=== PATIENT | female | born 1990 | race Caucasian/White ===

== ENCOUNTER 2017-08-13 07:11 | Inpatient (IN) | payer MEDICAID ==
[2017-08-13] MEDS ORDERED: Nalbuphine 20 MG/1 ML Amp IVPUSH PRN (07:21)
[2017-08-13] MEDS ORDERED: Ondansetron 4 MG/2 ML SDV IVPUSH PRN (07:21)
[2017-08-13] MEDS ORDERED: Sodium Chloride 0.9% 10 ML Syringe FLUSH PRN (07:21)
[2017-08-13] MEDS ORDERED: Oxytocin/Lactated Ringers 10 UNIT/1,000 ML BAG IV SCH ×2 (07:30)
[2017-08-13] MEDS ORDERED: diphenhydrAMINE 50 MG/ML SDV IVPUSH PRN (07:50)
[2017-08-13] MEDS ORDERED: fentaNYL 100 MCG/2 ML SDV EPIDUR PRN (07:50)
[2017-08-13] MEDS ORDERED: ePHEDrine 50 MG/ML SDV IVPUSH PRN (07:50)
[2017-08-13] MEDS ORDERED: Bupivacaine/fentaNYL/NS 100 ML Bag EPIDUR SCH (08:00)
--- NOTE | 2017-08-13 08:04 | PCM.LDHP ---
L&D History of Present Illness - General Date of Service: 08/13/17 Admit Problem/Dx: Patient Status Order with Admit Dx/Problem 08/13/17 07:22 Patient Status [ADT] Routine Admission Diagnosis/Problem Admission Diagnosis/Problem High risk Source of Information: Patient History Limitations: Reports: No Limitations - History of Present Illness Introduction:: Patient is a 26 y/o at 38 0/7 wks who presents for IOL for IUGR. Patient has had evaluation with MFM this . No underlying etiology found for IUGR. Has had appropriate testing. Did have a low lying placenta throughout . Last week had an US with MFM which showed distance between placenta and cervix of 1.6 cm. Yesterday was 3.8 cm. 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 (Approximate): - Past Surgical History HEENT Surgical History: Reports: Oral Surgery (wisdom tooth extraction) Social & Family History - Family History Family Medical History: Noncontributory - Tobacco Use Smoking Status *Q: Never Smoker Second Hand Smoke Exposure: No - Alcohol Use Alcohol Use History: No Days Per Week of Alcohol Use: 0 - Recreational Drug Use Recreational Drug Use: No H&P Review of Systems - Review of Systems: Review Of Systems: See Below General: Reports: No Symptoms Pulmonary: Reports: No Symptoms Cardiovascular: Reports: No Symptoms Gastrointestinal: Reports: No Symptoms Genitourinary: Reports: No Symptoms Musculoskeletal: Reports: No Symptoms L&D Exam - Exam Exam: See Below - OB Specific Contraction Intensity: Irritability Movement: Active Heart Tones: Present Heart Tones per Min: 135 Heart Rate (FHR) Variability: Moderate (6-25 bmp) Presentation: Vertex - Jeong Score Jeong Score Cervix Position: Posterior Jeong Score Consistency: Soft Jeong Score Effacement: 51-70% Jeong Score Dilation: 1-2 cm Jeong Score 's Station: -3 Jeong Score Total: 5 - Exam General: Alert, Oriented, Cooperative Lungs: Clear to Auscultation, Normal Respiratory Effort Cardiovascular: Regular Rate, Regular Rhythm GI/Abdominal Exam: Soft, Non-Tender Genitourinary: Normal external exam Extremities: Normal Inspection Skin: Warm, Dry, Intact - Patient Data Result Diagrams: 08/13/17 07:50 - Problem List (1) 38 weeks gestation of SNOMED Code(s): 12673895 ICD Code: Z3A.38 - 38 WEEKS GESTATION OF Status: Acute Current Visit: Yes (2) IUGR (intrauterine growth restriction) SNOMED Code(s): 32772989 ICD Code: [id number] - Status: Acute Current Visit: Yes Problem List Initiated/Reviewed/Updated: Yes Orders Last 24hrs: Active Orders 24 hr Category Date Time Status Patient Status [ADT] Routine ADT 08/13/17 07:22 Ordered Activity as Tolerated [RC] PFP Care 08/13/17 07:22 Ordered Communication Order [RC] ASDIRECTED Care 08/13/17 07:22 Ordered Communication Order [RC] ASDIRECTED Care 08/13/17 07:22 Ordered Communication Order [RC] ASDIRECTED Care 08/13/17 07:22 Ordered Communication Order [RC] ASDIRECTED Care 08/13/17 07:50 Active Cooling Warming Measures [RC] ASDIRECTED Care 08/13/17 07:50 Active Monitoring [RC] INTERMITTENT Care 08/13/17 07:22 Ordered Notify Provider [RC] ASDIRECTED Care 08/13/17 07:22 Ordered Notify Provider [RC] ASDIRECTED Care 08/13/17 07:50 Active Notify Provider [RC] PRN Care 08/13/17 07:22 Ordered Oxygen Therapy [RC] ASDIRECTED Care 08/13/17 07:49 Active Peripheral IV Care [RC] . DIRECTED Care 08/13/17 07:22 Ordered Pulse Oximetry [RC] ASDIRECTED Care 08/13/17 07:49 Active Pump Management, Intrathecal [RC] ASDIRECTED Care 08/13/17 07:21 Ordered Up ad Ellie [RC] ASDIRECTED Care 08/13/17 07:22 Ordered Urinary Catheter Assessment [RC] ASDIRECTED Care 08/13/17 07:21 Ordered Vaginal Exam [RC] ASDIRECTED Care 08/13/17 07:22 Ordered Verify Patient Consent Obtain [RC] ASDIRECTED Care 08/13/17 07:50 Active Vital Signs [RC] ASDIRECTED Care 08/13/17 07:22 Ordered Vital Signs [RC] PER UNIT ROUTINE Care 08/13/17 07:22 Ordered Vital Signs [RC] Q1H Care 08/13/17 07:49 Active Regular Diet [DIET] Diet 08/13/17 Breakfast Ordered CBC W/O DIFF,HEMOGRAM [HEME] Routine Lab 08/13/17 07:21 Ordered TYPE AND SCREEN [BBK] Routine Lab 08/13/17 07:21 Ordered Bupivacaine/fentaNYL/NS [fentaNYL/Bupivacaine/NS 2 MCG- Med 08/13/17 08:00 Active 0.125% 100 ML] 100 ml EPIDUR ASDIRECTED Lactated Ringers [Ringers, Lactated] 1,000 ml Med 08/13/17 07:30 Ordered IV ASDIRECTED Nalbuphine [Nubain] Med 08/13/17 07:21 Ordered 10 mg IVPUSH Q2H PRN Ondansetron [Zofran] Med 08/13/17 07:21 Ordered 4 mg IVPUSH Q4H PRN Oxytocin/Lactated Ringers [Pitocin in LR 10 Units/1,000 Med 08/13/17 07:30 Ordered ML] 10 unit in 1,000 ml IV .CONTINUOUS Oxytocin/Lactated Ringers [Pitocin in LR 10 Units/1,000 Med 08/13/17 07:30 Ordered ML] 10 unit in 1,000 ml IV TITRATE Sodium Chloride 0.9% [Saline Flush] Med 08/13/17 07:21 Ordered 10 ml FLUSH ASDIRECTED PRN diphenhydrAMINE [Benadryl] Med 08/13/17 07:50 Active 25 mg IVPUSH Q6H PRN ePHEDrine [ePHEDrine Sulfate] Med 08/13/17 07:50 Active 5 mg IVPUSH ASDIRECTED PRN fentaNYL [Sublimaze] Med 08/13/17 07:50 Active 100 mcg EPIDUR Q3H PRN Electronic Heart Tones Internal [WOMSER] Per Unit Oth 08/13/17 07:22 Ordered Routine Peripheral IV Insertion Adult [OM.PC] Routine Oth 08/13/17 07:22 Ordered Resuscitation Status Routine Resus Stat 08/13/17 07:21 Ordered Medication Orders Diphenhydramine HCl (Benadryl) 25 mg IVPUSH Q6H PRN PRN Reason: Itching Ephedrine Sulfate (Ephedrine Sulfate) 5 mg IVPUSH ASDIRECTED PRN PRN Reason: HYPOTENTSION Fentanyl (Sublimaze) 100 mcg EPIDUR Q3H PRN PRN Reason: PAIN Fentanyl/Bupivacaine HCl (Fentanyl/Bupivacaine/Ns 2 Mcg-0.125% 100 Ml) 100 ml EPIDUR ASDIRECTED KARYNA Lactated Ringer's (Ringers, Lactated) 1,000 mls @ 40 mls/hr IV ASDIRECTED KARYNA Oxytocin/Lactated Ringer's (Pitocin In Lr 10 Units/1,000 Ml) 10 unit in 1,000 mls @ 12 mls/hr IV TITRATE KARYNA; 2 MUNITS/MIN PRN Reason: Protocol Oxytocin/Lactated Ringer's (Pitocin In Lr 10 Units/1,000 Ml) 10 unit in 1,000 mls @ 500 mls/hr IV .CONTINUOUS KARYNA Nalbuphine HCl (Nubain) 10 mg IVPUSH Q2H PRN PRN Reason: Pain (moderate 4-6) Ondansetron HCl (Zofran) 4 mg IVPUSH Q4H PRN PRN Reason: Nausea/Vomiting Sodium Chloride (Saline Flush) 10 ml FLUSH ASDIRECTED PRN PRN Reason: Keep Vein Open Assessment/Plan Comment:: 26 y/o at 38 0/7 wks who presents for IOL for IUGR * CBC and T&S * GBS negative, no need for antibiotics * Pitocin and AROM for augmentation * Pain management per patient preference * Patient previously with low lying placenta, thought to be resolved on yesterday's US. Reviewed still potential for bleeding. She is aware. Does desire trial of vaginal delivery
[2017-08-13] MEDS: Lactated Ringers 1,000 ML IV SCH ×3 (08:29→12:34)
--- NOTE | 2017-08-13 10:57 | PCM.PNLD ---
Labor Progress Note - VS & Meds Vital Signs: Last Vital Signs Temp 37.0 C 08/13/17 07:22 Pulse 92 08/13/17 07:22 Resp 16 08/13/17 07:22 BP 105/54 L 08/13/17 07:22 Pulse Ox 98 08/13/17 09:12 Active Medications: Current Medications Diphenhydramine HCl (Benadryl) 25 mg IVPUSH Q6H PRN PRN Reason: Itching Ephedrine Sulfate (Ephedrine Sulfate) 5 mg IVPUSH ASDIRECTED PRN PRN Reason: HYPOTENTSION Fentanyl (Sublimaze) 100 mcg EPIDUR Q3H PRN PRN Reason: PAIN Fentanyl/Bupivacaine HCl (Fentanyl/Bupivacaine/Ns 2 Mcg-0.125% 100 Ml) 100 ml EPIDUR ASDIRECTED KARYNA Lactated Ringer's (Ringers, Lactated) 1,000 mls @ 40 mls/hr IV ASDIRECTED KARYNA Last Admin: 08/13/17 08:29 Dose: 40 mls/hr Oxytocin/Lactated Ringer's (Pitocin In Lr 10 Units/1,000 Ml) 10 unit in 1,000 mls @ 12 mls/hr IV TITRATE KARYNA; 2 MUNITS/MIN PRN Reason: Protocol Last Titration: 08/13/17 10:07 Dose: 8 munits/min, 48 mls/hr Oxytocin/Lactated Ringer's (Pitocin In Lr 10 Units/1,000 Ml) 10 unit in 1,000 mls @ 500 mls/hr IV .CONTINUOUS KARYNA Nalbuphine HCl (Nubain) 10 mg IVPUSH Q2H PRN PRN Reason: Pain (moderate 4-6) Ondansetron HCl (Zofran) 4 mg IVPUSH Q4H PRN PRN Reason: Nausea/Vomiting Sodium Chloride (Saline Flush) 10 ml FLUSH ASDIRECTED PRN PRN Reason: Keep Vein Open - Uterine Contractions Uterine Monitoring Mode: External [place] Contraction Intensity: Mild to Moderate Uterine Resting Tone: Soft - Monitoring Monitor Mode: External Ultrasound Heart Rate (FHR) Baseline: 135 Heart Rate (FHR) Variability: Moderate (6-25 bmp) Accelerations: Present, 15x15 Decelerations: None Strip Review: Category I - Vaginal Exam Dilation (cm): 3 Effacement (Percent): 60 Station: -2 Cervical Position: Posterior - Labor Progress (Free Text) Labor Progress: Patient doing well. On 8 of pitocin. AROM performed with release of clear fluid
--- NOTE | 2017-08-13 12:28 | PCM.PREANE ---
Preanesthetic Assessment - Anesthesia/Transfusion/Family Hx Anesthesia History: Prior Anesthesia Without Reaction Family History of Anesthesia Reaction: No Transfusion History: No Prior Transfusion(s) - Review of Systems General: No Symptoms Pulmonary: No Symptoms Cardiovascular: No Symptoms Gastrointestinal: No Symptoms Neurological: No Symptoms Other: Reports: None - Physical Assessment Pulse: 68 O2 Sat by Pulse Oximetry: 98 Respiratory Rate: 16 Blood Pressure: 102/63 Temperature: 36.3 C Vital Signs: Last Vital Signs Temp 37.0 C 08/13/17 07:22 Pulse 92 08/13/17 07:22 Resp 16 08/13/17 07:22 BP 105/54 L 08/13/17 07:22 Pulse Ox 98 08/13/17 09:12 Height: 1.6 m Weight: 76.158 kg ASA Class: 2 Mental Status: Alert & Oriented x3 Airway Class: Mallampati = 1 Dentition: Reports: Normal Dentition, Wind Point(s) Thyro-Mental Finger Breadths: 3 Mouth Opening Finger Breadths: 3 ROM/Head Extension: Full Lungs: Clear to Auscultation, Normal Respiratory Effort Cardiovascular: Regular Rate, Regular Rhythm, No Murmurs - Lab Values: Laboratory Last Values WBC 8.65 K/mm3 (3.98-10.04) 08/13/17 07:50 RBC 4.12 M/mm3 (3.98-5.22) 08/13/17 07:50 Hgb 10.8 gm/L (11.2-15.7) L 08/13/17 07:50 Hct 33.0 % (34.1-44.9) L 08/13/17 07:50 MCV 80.1 fl (79.4-94.8) 08/13/17 07:50 MCH 26.2 pg (25.6-32.2) 08/13/17 07:50 MCHC 32.7 g/dl (32.2-35.5) 08/13/17 07:50 RDW Std Deviation 40.9 fL (36.4-46.3) 08/13/17 07:50 Plt Count 194 K/mm3 (182-369) 08/13/17 07:50 MPV 9.8 fl (9.4-12.3) 08/13/17 07:50 Blood Type A POSITIVE 08/13/17 07:50 Gel Antibody Screen Negative 08/13/17 07:50 - Allergies Allergies/Adverse Reactions: Allergies Allergy/AdvReac Type Severity Reaction Status Date / Time No Known Allergies Allergy Verified 01/29/16 08:31 - Acknowledgements Anesthesia Type Planned: Epidural Pt an Appropriate Candidate for the Planned Anesthesia: Yes Alternatives and Risks of Anesthesia Discussed w Pt/Guardian: Yes Pt/Guardian Understands and Agrees with Anesthesia Plan: Yes PreAnesthesia Questionnaire - Past Health History Medical/Surgical History: Denies Medical/Surgical History Gastrointestinal History: Reports: GERD [place] History: Reports: - Past Surgical History HEENT Surgical History: Reports: Oral Surgery (wisdom tooth extraction) - SUBSTANCE USE Smoking Status *Q: Never Smoker Tobacco Use Within Last Twelve Months: No Second Hand Smoke Exposure: No Days Per Week of Alcohol Use: 0 Recreational Drug Use History: No - HOME MEDS Home Medications: Home Meds Vits #93/Iron Fum/FA [ Formula Tablet] 1 tab PO DAILY 08/13/17 [History] - CURRENT (IN HOUSE) MEDS Current Meds: Current Medications Diphenhydramine HCl (Benadryl) 25 mg IVPUSH Q6H PRN PRN Reason: Itching Ephedrine Sulfate (Ephedrine Sulfate) 5 mg IVPUSH ASDIRECTED PRN PRN Reason: HYPOTENTSION Fentanyl (Sublimaze) 100 mcg EPIDUR Q3H PRN PRN Reason: PAIN Last Admin: 08/13/17 12:19 Dose: 100 mcg Fentanyl/Bupivacaine HCl (Fentanyl/Bupivacaine/Ns 2 Mcg-0.125% 100 Ml) 100 ml EPIDUR ASDIRECTED KARYNA Last Admin: 08/13/17 12:20 Dose: 100 ml Lactated Ringer's (Ringers, Lactated) 1,000 mls @ 40 mls/hr IV ASDIRECTED KARYNA Last Admin: 08/13/17 08:29 Dose: 40 mls/hr Oxytocin/Lactated Ringer's (Pitocin In Lr 10 Units/1,000 Ml) 10 unit in 1,000 mls @ 12 mls/hr IV TITRATE KARYNA; 2 MUNITS/MIN PRN Reason: Protocol Last Titration: 08/13/17 10:07 Dose: 8 munits/min, 48 mls/hr Oxytocin/Lactated Ringer's (Pitocin In Lr 10 Units/1,000 Ml) 10 unit in 1,000 mls @ 500 mls/hr IV .CONTINUOUS KARYNA Nalbuphine HCl (Nubain) 10 mg IVPUSH Q2H PRN PRN Reason: Pain (moderate 4-6) Ondansetron HCl (Zofran) 4 mg IVPUSH Q4H PRN PRN Reason: Nausea/Vomiting Sodium Chloride (Saline Flush) 10 ml FLUSH ASDIRECTED PRN PRN Reason: Keep Vein Open
[2017-08-13] MEDS ORDERED: Misoprostol 200 MCG Tab ONE (15:05)
[2017-08-13] MEDS ORDERED: Methylergonovine 0.2 MG/1 ML Amp ONE (15:27)
[2017-08-13] MEDS ORDERED: Misoprostol 200 MCG Tab PO STA (15:51)
[2017-08-13] MEDS ORDERED: Methylergonovine 0.2 MG/1 ML Amp IM STA (15:51)
--- NOTE | 2017-08-13 15:58 | PCM.DEL ---
L & D Note - General Info Date of Service: 08/13/17 - Delivery Note Labor: Induced by ARM, Induced by Oxytocin Delivery Outcome: Livebirth Infant Delivery Method: Spontaneous Vaginal Delivery-Single Infant Delivery Mode: Spontaneous Presentation: Left Occiput Anterior (ELTON) Nuchal Cord: None Anesthesia Type: Epidural Amniotic Fluid Description: Clear Episiotomy Type: None Laceration: None Placenta: Intact, Spontaneous Cord: 3 Vessels Estimated Blood Loss: 750 Resuscitation Needed: Yes [place]: Bulb Syringe, Stimulated, Warmed, [place] Used Score 1 min: 8 Score 5 min: 9 Delivery Comments (Free Text/Narrative):: Patient found to be complete and began pushing. With maternal pushing effort head delivered from an ELTON presentation. No nuchal cord present. With gentle downward traction the shoulders and body delivered. Infant placed on maternal abdomen. Cord clamped and cut. Cord blood obtained. Placenta allowed time to separate and expelled. Quick flow noted from uterus. Patient given 600 mcg of buccal cytotec. Bleeding did not initially respond and so she was given 0.2 mg of IM methergine. Continued fundal massage, pitocin, and sweeps of the lower uterine segment eventually did control bleeding. Inspection of the perineum showed no lacerations - Patient Data Vitals - Most Recent: Last Vital Signs Temp 36.3 C 08/13/17 12:28 Pulse 68 08/13/17 12:28 Resp 16 08/13/17 12:28 BP 102/63 08/13/17 12:28 Pulse Ox 98 08/13/17 12:28 Weight - Most Recent: 76.158 kg I&O - Last 24 Hours: Intake & Output 08/13/17 08/13/17 08/13/17 06:59 14:59 22:59 Intake Total 4000 Balance 4000 Lab Results Last 24 Hours: Laboratory Results - last 24 hr 08/13/17 08/13/17 Range/Units 07:50 07:50 WBC 8.65 (3.98-10.04) K/mm3 RBC 4.12 (3.98-5.22) M/mm3 Hgb 10.8 L (11.2-15.7) gm/L Hct 33.0 L (34.1-44.9) % MCV 80.1 (79.4-94.8) fl MCH 26.2 (25.6-32.2) pg MCHC 32.7 (32.2-35.5) g/dl RDW Std Deviation 40.9 (36.4-46.3) fL Plt Count 194 (182-369) K/mm3 MPV 9.8 (9.4-12.3) fl Blood Type A POSITIVE Gel Antibody Screen Negative Med Orders - Current: Current Medications Diphenhydramine HCl (Benadryl) 25 mg IVPUSH Q6H PRN PRN Reason: Itching Ephedrine Sulfate (Ephedrine Sulfate) 5 mg IVPUSH ASDIRECTED PRN PRN Reason: HYPOTENTSION Fentanyl (Sublimaze) 100 mcg EPIDUR Q3H PRN PRN Reason: PAIN Last Admin: 08/13/17 12:19 Dose: 100 mcg Fentanyl/Bupivacaine HCl (Fentanyl/Bupivacaine/Ns 2 Mcg-0.125% 100 Ml) 100 ml EPIDUR ASDIRECTED KARYNA Last Admin: 08/13/17 12:20 Dose: 100 ml Lactated Ringer's (Ringers, Lactated) 1,000 mls @ 40 mls/hr IV ASDIRECTED KARYNA Last Admin: 08/13/17 12:34 Dose: 500 mls/hr Oxytocin/Lactated Ringer's (Pitocin In Lr 10 Units/1,000 Ml) 10 unit in 1,000 mls @ 12 mls/hr IV TITRATE KARYNA; 2 MUNITS/MIN PRN Reason: Protocol Last Titration: 08/13/17 14:30 Dose: 2 munits/min, 12 mls/hr Oxytocin/Lactated Ringer's (Pitocin In Lr 10 Units/1,000 Ml) 10 unit in 1,000 mls @ 500 mls/hr IV .CONTINUOUS KARYNA Methylergonovine Maleate (Methergine) 0.2 mg IM Q4H STA Stop: 08/13/17 15:52 Misoprostol (Cytotec) 600 mcg PO NOW STA Stop: 08/13/17 15:52 Nalbuphine HCl (Nubain) 10 mg IVPUSH Q2H PRN PRN Reason: Pain (moderate 4-6) Ondansetron HCl (Zofran) 4 mg IVPUSH Q4H PRN PRN Reason: Nausea/Vomiting Sodium Chloride (Saline Flush) 10 ml FLUSH ASDIRECTED PRN PRN Reason: Keep Vein Open Discontinued Medications Methylergonovine Maleate (Methergine) Confirm Administered Dose 0.2 mg .ROUTE .STK-MED ONE Stop: 08/13/17 15:28 Misoprostol (Cytotec) Confirm Administered Dose 600 mcg .ROUTE .STK-MED ONE Stop: 08/13/17 15:06 - Problem List & Annotations (1) 38 weeks gestation of SNOMED Code(s): 91611289 Code(s): Z3A.38 - 38 WEEKS GESTATION OF Status: Acute Current Visit: Yes (2) IUGR (intrauterine growth restriction) SNOMED Code(s): 39067417 Code(s): CEE3115 - Status: Acute Current Visit: Yes (3) hemorrhage SNOMED Code(s): 67512017 Code(s): O72.1 - OTHER IMMEDIATE HEMORRHAGE Status: Acute Current Visit: Yes Qualifiers: hemorrhage type: other immediate Qualified Code(s): O72.1 - Other immediate hemorrhage (4) Vaginal delivery SNOMED Code(s): 649076371 Code(s): O80 - ENCOUNTER FOR FULL-TERM UNCOMPLICATED DELIVERY Status: Acute Current Visit: No - Problem List Review Problem List Initiated/Reviewed/Updated: Yes - My Orders Last 24 Hours: My Active Orders 08/13/17 07:21 Pump Management, Intrathecal [RC] ASDIRECTED Urinary Catheter Assessment [RC] ASDIRECTED Nalbuphine [Nubain] 10 mg IVPUSH Q2H PRN Ondansetron [Zofran] 4 mg IVPUSH Q4H PRN Sodium Chloride 0.9% [Saline Flush] 10 ml FLUSH ASDIRECTED PRN Resuscitation Status Routine 08/13/17 07:22 Patient Status [ADT] Routine Activity as Tolerated [RC] PFP Communication Order [RC] ASDIRECTED Communication Order [RC] ASDIRECTED Communication Order [RC] ASDIRECTED Monitoring [RC] INTERMITTENT Notify Provider [RC] ASDIRECTED Notify Provider [RC] PRN Peripheral IV Care [RC] . DIRECTED Up ad Ellie [RC] ASDIRECTED Vaginal Exam [RC] ASDIRECTED Vital Signs [RC] ASDIRECTED Vital Signs [RC] PER UNIT ROUTINE Electronic Heart Tones Internal [WOMSER] Per Unit Routine Peripheral IV Insertion Adult [OM.PC] Routine 08/13/17 07:30 Lactated Ringers [Ringers, Lactated] 1,000 ml IV ASDIRECTED Oxytocin/Lactated Ringers [Pitocin in LR 10 Units/1,000 ML] 10 unit in 1,000 ml IV .CONTINUOUS Oxytocin/Lactated Ringers [Pitocin in LR 10 Units/1,000 ML] 10 unit in 1,000 ml IV TITRATE 08/13/17 15:51 Methylergonovine [Methergine] 0.2 mg IM Q4H STA Misoprostol [Cytotec] 600 mcg PO NOW STA 08/13/17 Breakfast Regular Diet [DIET] - Assessment Assessment:: 26 y/o G3 now P3003 PPD#0 from at 38 0/7 wks - Plan Plan:: * Routine cares * Encourage breast feeding * Discharge home in 1-2 days
[2017-08-13] MEDS ORDERED: Acetaminophen 325 MG Tab PO PRN (18:09)
[2017-08-13] MEDS ORDERED: Docusate Sodium 100 MG Cap PO PRN (18:09)
[2017-08-13] MEDS ORDERED: Witch Hazel Medicated Pads 100/Jar TOP PRN (18:09)
[2017-08-13] MEDS ORDERED: Lanolin 100% Cream 7 GM Tube TOP PRN (18:09)
[2017-08-13] MEDS ORDERED: Benzocaine/Menthol 20%-0.5% Spray 56 GM Canister TOP PRN (18:09)
[2017-08-13] MEDS: Ibuprofen 600 MG Tab PO PRN (18:15)
[2017-08-13] MEDS ORDERED: Bupivacaine 0.25% 10 ML SDV ONE (22:22)
[2017-08-14] MEDS: Ibuprofen 600 MG Tab PO PRN ×2 (00:36→11:15)
--- NOTE | 2017-08-14 09:30 | PCM.PNPP ---
- General Info Date of Service: 08/14/17 Functional Status: Reports: Pain Controlled, Tolerating Diet, Ambulating, Urinating - Review of Systems General: Reports: No Symptoms Pulmonary: Reports: No Symptoms Cardiovascular: Reports: No Symptoms Gastrointestinal: Reports: Abdominal Pain (cramping) Genitourinary: Reports: No Symptoms - Patient Data Vital Signs - Most Recent: Last Vital Signs Temp 36.6 C 08/14/17 04:01 Pulse 66 08/14/17 04:01 Resp 15 08/14/17 04:01 BP 100/62 08/14/17 04:01 Pulse Ox 97 08/14/17 04:01 Weight - Most Recent: 76.158 kg I&O - Last 24 Hours: Intake & Output 08/13/17 08/14/17 08/14/17 22:59 06:59 14:59 Intake Total 1000 Output Total 1900 Balance -900 Med Orders - Current: Current Medications Acetaminophen (Tylenol) 650 mg PO Q4H PRN PRN Reason: mild pain or fever Last Admin: 08/14/17 04:49 Dose: 650 mg Benzocaine/Menthol (Dermoplast Pain Relief [place]) 0 gm TOP ASDIRECTED PRN PRN Reason: Perineal Comfort Measure Last Admin: 08/13/17 18:20 Dose: 1 can Docusate Sodium (Colace) 100 mg PO BID PRN PRN Reason: Constipation Emollient Ointment (Lansinoh Hpa) 0 gm TOP ASDIRECTED PRN PRN Reason: Sore Nipples Ibuprofen (Motrin) 600 mg PO Q6H PRN PRN Reason: Mild pain or fever Last Admin: 08/14/17 00:36 Dose: 600 mg Witch Eulalia (Tucks) 1 pad TOP ASDIRECTED PRN PRN Reason: Hemorrhoid pain Last Admin: 08/13/17 18:20 Dose: 1 jar Discontinued Medications Diphenhydramine HCl (Benadryl) 25 mg IVPUSH Q6H PRN PRN Reason: Itching Ephedrine Sulfate (Ephedrine Sulfate) 5 mg IVPUSH ASDIRECTED PRN PRN Reason: HYPOTENTSION Fentanyl (Sublimaze) 100 mcg EPIDUR Q3H PRN PRN Reason: PAIN Last Admin: 08/13/17 12:19 Dose: 100 mcg Fentanyl/Bupivacaine HCl (Fentanyl/Bupivacaine/Ns 2 Mcg-0.125% 100 Ml) 100 ml EPIDUR ASDIRECTED KARYNA Last Admin: 08/13/17 12:20 Dose: 100 ml Lactated Ringer's (Ringers, Lactated) 1,000 mls @ 40 mls/hr IV ASDIRECTED KARYNA Last Admin: 08/13/17 12:34 Dose: 500 mls/hr Oxytocin/Lactated Ringer's (Pitocin In Lr 10 Units/1,000 Ml) 10 unit in 1,000 mls @ 12 mls/hr IV TITRATE KARYNA; 2 MUNITS/MIN PRN Reason: Protocol Last Titration: 08/13/17 15:20 Dose: 999 mls/hr Oxytocin/Lactated Ringer's (Pitocin In Lr 10 Units/1,000 Ml) 10 unit in 1,000 mls @ 500 mls/hr IV .CONTINUOUS KARYNA Last Admin: 08/13/17 16:12 Dose: 500 mls/hr Methylergonovine Maleate (Methergine) Confirm Administered Dose 0.2 mg .ROUTE .STK-MED ONE Stop: 08/13/17 15:28 Last Admin: 08/13/17 15:40 Dose: 0.2 mg Methylergonovine Maleate (Methergine) 0.2 mg IM Q4H STA Stop: 08/13/17 15:52 Last Admin: 08/13/17 16:17 Dose: Not Given Misoprostol (Cytotec) Confirm Administered Dose 600 mcg .ROUTE .STK-MED ONE Stop: 08/13/17 15:06 Last Admin: 08/13/17 16:17 Dose: Not Given Misoprostol (Cytotec) 600 mcg PO NOW STA Stop: 08/13/17 15:52 Last Admin: 08/13/17 15:25 Dose: 600 mcg Nalbuphine HCl (Nubain) 10 mg IVPUSH Q2H PRN PRN Reason: Pain (moderate 4-6) Ondansetron HCl (Zofran) 4 mg IVPUSH Q4H PRN PRN Reason: Nausea/Vomiting Sodium Chloride (Saline Flush) 10 ml FLUSH ASDIRECTED PRN PRN Reason: Keep Vein Open - Infant Interaction Infant Disposition, : in Room with Family Interaction: Holding Infant Infant Feeding: Attempted ; Nursed Fair/Poor Support Person: - Recovery Exam Fundal Tone: Firm Fundal Level: 1 Fingerbreadths Below Umbilicus Fundal Placement: Midline Lochia Amount: Small, Moderate Lochia Color: Rubra/Red Bladder Status: Voiding - Exam General: Alert, Oriented, Cooperative GI/Abdominal Exam: Soft, Non-Tender Extremities: Normal Inspection Skin: Warm, Dry, Intact - Problem List & Annotations (1) 38 weeks gestation of SNOMED Code(s): 30789348 Code(s): Z3A.38 - 38 WEEKS GESTATION OF Status: Acute Current Visit: Yes (2) IUGR (intrauterine growth restriction) SNOMED Code(s): 71718449 Code(s): CFP7433 - Status: Acute Current Visit: Yes (3) hemorrhage SNOMED Code(s): 68386745 Code(s): O72.1 - OTHER IMMEDIATE HEMORRHAGE Status: Acute Current Visit: Yes Qualifiers: hemorrhage type: other immediate Qualified Code(s): O72.1 - Other immediate hemorrhage (4) Vaginal delivery SNOMED Code(s): 323650801 Code(s): O80 - ENCOUNTER FOR FULL-TERM UNCOMPLICATED DELIVERY Status: Acute Current Visit: No - Problem List Review Problem List Initiated/Reviewed/Updated: Yes - My Orders Last 24 Hours: My Active Orders 08/13/17 18:09 Activity as Tolerated [RC] Vital Signs [RC] 04,12,20 Acetaminophen [Tylenol] 650 mg PO Q4H PRN Benzocaine/Menthol [Dermoplast Pain Relief [place]] See Dose Instructions TOP ASDIRECTED PRN Docusate Sodium [Colace] 100 mg PO BID PRN Ibuprofen [Motrin] 600 mg PO Q6H PRN Lanolin [Lansinoh HPA] See Dose Instructions TOP ASDIRECTED PRN Witch Eulalia [Tucks] 1 pad TOP ASDIRECTED PRN Assess Lochia [WOMSER] Per Unit Routine Assess Uterine Involution [WOMSER] Per Unit Routine Breast Pump [WOMSER] Per Unit Routine Heat Therapy [OM.PC] PRN Ice Therapy [OM.PC] Per Unit Routine Perineal Care [OM.PC] Per Unit Routine Sitz Bath [OM.PC] Per Unit Routine 08/13/17 Dinner Regular Diet [DIET] 08/14/17 18:09 Heat Therapy [OM.PC] PRN - Assessment Assessment:: 26 y/o G3 now P3003 PPD#1 from at 38 0/7 wks - Plan Plan:: * Routine cares * Encourage breast feeding * Discharge home today per patient preference
--- NOTE | 2017-08-14 09:32 | PCM.DCSUM1 ---
Discharge Summary - Discharge Data Discharge Date: 08/14/17 Discharge Disposition: Home, Self-Care 01 Condition: Good - Discharge Diagnosis/Problem(s) (1) 38 weeks gestation of SNOMED Code(s): 63573408 ICD Code: Z3A.38 - 38 WEEKS GESTATION OF Status: Acute Current Visit: Yes (2) IUGR (intrauterine growth restriction) SNOMED Code(s): 20093815 ICD Code: [id number] - Status: Acute Current Visit: Yes (3) hemorrhage SNOMED Code(s): 77798445 ICD Code: O72.1 - OTHER IMMEDIATE HEMORRHAGE Status: Acute Current Visit: Yes Qualifiers: hemorrhage type: other immediate Qualified Code(s): O72.1 - Other immediate hemorrhage (4) Vaginal delivery SNOMED Code(s): 985777632 ICD Code: O80 - ENCOUNTER FOR FULL-TERM UNCOMPLICATED DELIVERY Status: Acute Current Visit: No - Patient Summary/Data Complications: None Consults: None Recommended Follow-up Testing/Procedures: Follow up in 5-6 weeks for posptartum check Hospital Course: 26 y/o presented at 38 0/7 wks for IOL for IUGR. Induction started with pitocin and AROM. She progressed well to complete dilation and underwent an . Delivery complicated by PPH which was controlled with cytotec and methergine. See delivery note for full details. Post she did well and was discharged home on PPD#1 per her request. - Patient Instructions Diet: Regular Diet as Tolerated Activity: As Tolerated Activity, Other: Pelvic Rest for 6 weeks Driving: May Drive Today Showering/Bathing: May Shower Notify Provider of: Fever, Increased Pain, Swelling and Redness, Drainage, Nausea and/or Vomiting - Discharge Plan Home Medications: Home Meds Vits #93/Iron Fum/FA [ Formula Tablet] 1 tab PO DAILY 08/13/17 [History] Docusate Sodium [Colace] 100 mg PO BID PRN cap 08/14/17 [Rx] Ibuprofen [IJD: Ibuprofen] 600 mg PO Q6H PRN tablet 08/14/17 [Rx] Referrals: Kimberli Horvath MD [Primary Care Provider] - (3-6 weeks for check ) - Discharge Summary/Plan Comment DC Time >30 min.: No - Patient Data Vitals - Most Recent: Last Vital Signs Temp 36.6 C 08/14/17 04:01 Pulse 66 08/14/17 04:01 Resp 15 08/14/17 04:01 BP 100/62 08/14/17 04:01 Pulse Ox 97 08/14/17 04:01 Weight - Most Recent: 76.158 kg I&O - Last 24 hours: Intake & Output 08/13/17 08/14/17 08/14/17 22:59 06:59 14:59 Intake Total 1000 Output Total 1900 Balance -900 Med Orders - Current: Current Medications Acetaminophen (Tylenol) 650 mg PO Q4H PRN PRN Reason: mild pain or fever Last Admin: 08/14/17 04:49 Dose: 650 mg Benzocaine/Menthol (Dermoplast Pain Relief [place]) 0 gm TOP ASDIRECTED PRN PRN Reason: Perineal Comfort Measure Last Admin: 08/13/17 18:20 Dose: 1 can Docusate Sodium (Colace) 100 mg PO BID PRN PRN Reason: Constipation Emollient Ointment (Lansinoh Hpa) 0 gm TOP ASDIRECTED PRN PRN Reason: Sore Nipples Ibuprofen (Motrin) 600 mg PO Q6H PRN PRN Reason: Mild pain or fever Last Admin: 08/14/17 00:36 Dose: 600 mg Witch Eulalia (Tucks) 1 pad TOP ASDIRECTED PRN PRN Reason: Hemorrhoid pain Last Admin: 08/13/17 18:20 Dose: 1 jar Discontinued Medications Diphenhydramine HCl (Benadryl) 25 mg IVPUSH Q6H PRN PRN Reason: Itching Ephedrine Sulfate (Ephedrine Sulfate) 5 mg IVPUSH ASDIRECTED PRN PRN Reason: HYPOTENTSION Fentanyl (Sublimaze) 100 mcg EPIDUR Q3H PRN PRN Reason: PAIN Last Admin: 08/13/17 12:19 Dose: 100 mcg Fentanyl/Bupivacaine HCl (Fentanyl/Bupivacaine/Ns 2 Mcg-0.125% 100 Ml) 100 ml EPIDUR ASDIRECTED [facility] Last Admin: 08/13/17 12:20 Dose: 100 ml Lactated Ringer's (Ringers, Lactated) 1,000 mls @ 40 mls/hr IV ASDIRECTED [facility] Last Admin: 08/13/17 12:34 Dose: 500 mls/hr Oxytocin/Lactated Ringer's (Pitocin In Lr 10 Units/1,000 Ml) 10 unit in 1,000 mls @ 12 mls/hr IV TITRATE KARYNA; 2 MUNITS/MIN PRN Reason: Protocol Last Titration: 08/13/17 15:20 Dose: 999 mls/hr Oxytocin/Lactated Ringer's (Pitocin In Lr 10 Units/1,000 Ml) 10 unit in 1,000 mls @ 500 mls/hr IV .CONTINUOUS KARYNA Last Admin: 08/13/17 16:12 Dose: 500 mls/hr Methylergonovine Maleate (Methergine) Confirm Administered Dose 0.2 mg .ROUTE .STK-MED ONE Stop: 08/13/17 15:28 Last Admin: 08/13/17 15:40 Dose: 0.2 mg Methylergonovine Maleate (Methergine) 0.2 mg IM Q4H STA Stop: 08/13/17 15:52 Last Admin: 08/13/17 16:17 Dose: Not Given Misoprostol (Cytotec) Confirm Administered Dose 600 mcg .ROUTE .STK-MED ONE Stop: 08/13/17 15:06 Last Admin: 08/13/17 16:17 Dose: Not Given Misoprostol (Cytotec) 600 mcg PO NOW STA Stop: 08/13/17 15:52 Last Admin: 08/13/17 15:25 Dose: 600 mcg Nalbuphine HCl (Nubain) 10 mg IVPUSH Q2H PRN PRN Reason: Pain (moderate 4-6) Ondansetron HCl (Zofran) 4 mg IVPUSH Q4H PRN PRN Reason: Nausea/Vomiting Sodium Chloride (Saline Flush) 10 ml FLUSH ASDIRECTED PRN PRN Reason: Keep Vein Open *Q Meaningful Use (DIS) - VTE *Q VTE Criteria *Q: - Stroke *Q Stroke Criteria *Q: - AMI *Q AMI Criteria *Q:
[2017-08-14 12:18] VITALS: BP 107/57
== END 2017-08-14 15:55 | disposition home or self-care (01) | DRG 774 ==
LOC: JD.OB 07:11 → OBSVTOIN 15:19
PROVIDERS: ADMIT Obstetrics & Gynecology; ATTEND Obstetrics & Gynecology
PROC: 10E0XZZ Delivery of Products of Conception, External Approach (ICD-10-PCS; principal; 2017-08-13)
PROC: 3E033VJ Introduction of Other Hormone into Peripheral Vein, Percutaneous Approach (ICD-10-PCS; 2017-08-13)
PROC: 10907ZC Drainage of Amniotic Fluid, Therapeutic from Products of Conception, Via Natural or Artificial Opening (ICD-10-PCS; 2017-08-13)
PROC: 00HU33Z Insertion of Infusion Device into Spinal Canal, Percutaneous Approach (ICD-10-PCS; 2017-08-13)
PROC: 3E0R3BZ Introduction of Anesthetic Agent into Spinal Canal, Percutaneous Approach (ICD-10-PCS; 2017-08-13)
DX: O36.5930 Maternal care for other known or suspected poor fetal growth, third trimester, not applicable or unspecified (principal); O72.1 Other immediate postpartum hemorrhage; Z37.0 Single live birth; Z3A.38 38 weeks gestation of pregnancy
CPT/HCPCS: 36415; 51702; 59409; 85027; 86850; 86900; 86901; A9270-GY; J2210; J2590; J3010; J7120